=== PATIENT | female | born 1955 | race Caucasian/White ===

== ENCOUNTER → 2018-07-27 | Outpatient (REF) | payer OTHER ==
[2018-07-27 18:37] LABS: FERRITIN 36 NG/ML (8-252); IRON (FE) 43 UG/DL (50-170); PERCENT SATURATION 13.6 % (13.2-45.0); TOTAL IRON BINDING CAPACITY 316 UG/DL (250-450)
== END ==
LOC: M LAB REF 17:13
DX: N18.3 Chronic kidney disease, stage 3 (moderate) (principal); D63.1 Anemia in chronic kidney disease
CPT/HCPCS: 83550

== ENCOUNTER → 2018-07-27 | Outpatient (REF) | payer OTHER | LOC: M LAB REF 13:18 | DX: N39.0 Urinary tract infection, site not specified (principal) ==

== ENCOUNTER → 2018-08-09 | Outpatient (CLI) | payer OTHER | LOC: M RAD 13:36 | DX: N27.0 Small kidney, unilateral (principal); N18.3 Chronic kidney disease, stage 3 (moderate) | CPT/HCPCS: 78707 ==

== ENCOUNTER → 2018-08-12 | Outpatient (REF) | payer OTHER ==
[2018-08-12 18:24] LABS: AMORPHOUS SEDIMENT SMALL (NEGATIVE); BACTERIA, URINE AUTO 1+ (NEGATIVE); RBC, URINE AUTO 15 /HPF (0-3); SQUAMOUS EPITHELIAL CELL UR AU 1 /HPF (0-6); WBC, URINE AUTO TNTC /HPF (0-3); YEAST LIKE CELL URINE AUTO MODERATE
== END ==
LOC: M LAB REF 16:48
DX: N18.3 Chronic kidney disease, stage 3 (moderate) (principal); N39.0 Urinary tract infection, site not specified
CPT/HCPCS: 81015

== ENCOUNTER → 2018-10-14 | Outpatient (REF) | payer OTHER | LOC: M LAB REF 10:13 | PROVIDERS: ATTEND Internal Medicine Nephrology | DX: N39.0 Urinary tract infection, site not specified (principal); N18.3 Chronic kidney disease, stage 3 (moderate) ==

== ENCOUNTER → 2019-04-20 | Outpatient (REF) | payer OTHER | LOC: M LAB REF 13:18 | PROVIDERS: ATTEND Nurse Practitioner Family | DX: Z87.440 Personal history of urinary (tract) infections (principal) ==

== ENCOUNTER → 2019-05-09 | Outpatient (CLI) | payer MEDICARE, OTHER ==
--- NOTE | 2019-05-10 08:44 | REP ---
REASON: History of renal calculi. PRIORS: None. The lung bases are clear. Limited evaluation of the solid intra-abdominal organs and gallbladder show no gross abnormalities. There is a moderate-sized hiatal hernia. There are no right-sided nephroliths. Limited evaluation of the pancreas and adrenal glands show no gross abnormalities. There is a staghorn calculus on the left. The left renal cortex is thin. Small ground-like calculi might be present in the left renal pelvis and proximal left ureter as minimal radiodensities are suspected in a slightly dilated left renal pelvis and proximal left ureter. The distal portion of the left ureter is normal. The right renal collecting system is normal. There are no urinary bladder calcifications. There is no free fluid or free air in the abdomen or pelvis. There are multiple nonenlarged left periaortic lymph nodes. The abdominal aorta is seen with calcific atherosclerotic change but is otherwise unremarkable. The intra-abdominal and intrapelvic bowel loops are within normal limits. There has been previous left upper quadrant bowel surgery from previous gastric bypass. There is a small fat-containing umbilical hernia. There is no free fluid or free air in the abdomen or pelvis. Bone window technique throughout the exam shows chronic osseous changes. IMPRESSION: 1. Staghorn calculus on the left with other findings involving the left renal pelvis and proximal left ureter as described above. Clinical correlation and followup is suggested if clinically relevant. 2. Small fat-containing umbilical hernia. 3. Moderate-sized hiatal hernia. 4. Other findings as described above. Electronically Signed by Nacho Hernandez DO 05/10/2019 09:47 A
== END ==
LOC: M RAD 14:53
PROVIDERS: ATTEND Nurse Practitioner Family
DX: N20.0 Calculus of kidney (principal); Z87.442 Personal history of urinary calculi

== ENCOUNTER → 2019-10-27 | Outpatient (REF) | payer MEDICARE, OTHER | LOC: M LAB REF 17:14 | PROVIDERS: ATTEND Nurse Practitioner Family | DX: N39.0 Urinary tract infection, site not specified (principal) ==

== ENCOUNTER → 2019-11-07 | Outpatient (CLI) | payer MEDICARE, OTHER ==
--- NOTE | 2019-11-07 11:57 | REP ---
Clinical: Chronic stage III renal disease. Technique: Real time johnston scale ultrasound examination using curved array transducer. Findings: The kidneys demonstrate increased central sinus fat and decreased cortical thinning without hydronephrosis. Right kidney measures 9.8 x 4.2 x 4.4 cm without evidence for nephrolithiasis or mass lesion. Left kidney measures 11.3 x 4.8 x 5.4 cm with suggestions for nonobstructing intrarenal calculi. Bladder is collapsed. Impression: 1. Evidence for chronic medical renal disease with mild asymmetric atrophy to the right kidney. 2. Suspected left renal calculi which were previously identified on CT dated 05/09/2019 as staghorn calculus. Electronically Signed by Eros Harris MD 11/07/2019 11:49 A
== END ==
LOC: M RAD 11:09
PROVIDERS: ATTEND Nurse Practitioner Family
DX: N18.3 Chronic kidney disease, stage 3 (moderate) (principal); N26.1 Atrophy of kidney (terminal)

== ENCOUNTER → 2019-12-04 | Outpatient (CLI) | payer MEDICARE, OTHER ==
[~2019-12-04] MED LIST: CIPROFLOXACIN/D5W 400 MG/200 ML BAG (J0744) As Ordered ONE; DOCU100C16 PO; ISOVUE-300 61% 50ML VIAL (Q9967) As Ordered ONE; LIDOCAINE 1% MDV 20ML VIAL As Ordered ONE; MAGN1CAP PO; METO1TAB32 PO; MIDAZOLAM INJ 2 MG/2 ML VIAL (J2250) As Ordered ONE; PERCOCET PO; SPIR1TAB34 PO; SULF1TAB93 PO; VENL75TA2 PO; VITAD1000T PO; diphenhydrAMINE INJ 50MG/ML VIAL (J1200) As Ordered ONE; fentaNYL 100 MCG/2 ML INJECTION (J3010) As Ordered ONE; tylenol pm PO
--- NOTE | 2019-12-04 12:16 | IRHP ---
[facility] IR Pre-Procedure H & P General Date of Service: Dec 04, 2019 Procedure: Same Day Surgery Interval History and Physical I have seen the patient and reviewed last H & P performed within 30 days. There is no significant interval change. History of Present Illness Chief Complaint The patient is a 64-year-old female admitted with a reason for visit of Kidney Stone. PRE-PROCEDURE DIAGNOSIS: kidney stone HEART: normal rate. LUNGS: normal breathing at rest. ASA Classification ASA Classification: II-Mild systemic disease Mallampati Score: II NPO: Yes Problems with prior sedation: No Obstructive Sleep Apnea: No Plan moderate sedation Allergies Coded Allergies: Penicillins (Verified Allergy, Intermediate, hives, 11/22/19) ENVIROMENTAL (Verified Allergy, Unknown, 11/22/19) Home Medications Scheduled Cholecalciferol (Vitamin D3) (Vitamin D3), 2,000 UNITS PO DAILY, (Reported) Magnesium Oxide (Magnesium), 500 MG PO DAILY, (Reported) Metoprolol Succinate (Metoprolol Succinate), 25 MG PO QPM, (Reported) Spironolact/Hydrochlorothiazid (Spironolactone-Hctz 25-25 Tab), 1 EA PO DAILY, (Reported) Venlafaxine HCl (Venlafaxine HCl), 75 MG PO BID, (Reported) [tylenol pm], PO QPM, (Reported) VS, I&O, 24H, Fishbone Vital Signs/I&O Vital Signs Date Time Temp Pulse Resp B/P (MAP) Pulse Ox O2 Delivery O2 Flow Rate FiO2 12/04/19 11:37 97.2 66 18 100 Room Air SOFÍA ADAM MD Dec 04, 2019 12:16
[2019-12-04 15:20] VITALS: BP 120/62
--- NOTE | 2019-12-04 15:47 | POST-OPPD ---
Postoperative Procedure Note Date Of Procedure: Dec 04, 2019 Time Of Procedure: 15:46 PREOPERATIVE DIAGNOSIS: left kidney stone POSTOPERATIVE DIAGNOSIS: same FINDINGS: same. duplicated collecting system. PROCEDURE: left PCNL access. NU placed SURGEON: britni ANESTHESIA: mod sed ESTIMATED BLOOD LOSS: < 5 ml COMPLICATIONS: none POSTOPERATIVE CONDITION: stable SOFÍA ADAM MD Dec 04, 2019 15:47
--- NOTE | 2019-12-05 08:31 | REP ---
IR Percutaneous nephro ureteral catheter placement using fluoroscopy guidance. IR PCNL access IR Nephrostogram and Ureterogram. IR moderate sedation. Clinical information: Left renal staghorn calculus. Needs PCNL access. Physician: Dr Cordova. Procedure: The patient was advised of the benefits, risks and alternatives of the procedure and informed consent was obtained. The time-out was performed with verification of the patient's name, MRN, site of procedure and type of procedure to be performed. The patient was positioned in the prone position on the angiographic table. The site was prepped and draped in the usual sterile fashion. Moderate sedation was performed by the physician including the presence of an independent trained observer who assisted in monitoring the patient's level of consciousness and physiologic status. Following the administration of Fentanyl and Versed, the physician spent 60 minutes of face to face time with the patient. A sterilization tech radiograph reveals large radio opaque density over left kidney. The anticipated puncture site on the flank was anesthetized with lidocaine. Using fluoroscopic guidance, a lower pole calyx was accessed with a 21 gauge Chiba needle. A nephrostogram and ureterogram was performed demonstrating staghorn calculus in the left lower pole moiety. Duplicated collecting system with reflux into the upper pole moiety. Hydroureter of the lower ureter. 2 ureters join in the distal third of the ureter. An 018 wire was then advanced into the collecting system. The needle was then exchanged for a non vascular introducer set. A glide wire in conjunction with a glide cath was used to recanalize the klamath ureter down to the bladder using fluoro guidance. Contrast injection confirms location in the collecting system and bladder. The glidewire was exchanged for an Amplatz wire which was advanced under fluoroscopy guidance through the catheter into the bladder. The sheath and catheter were removed. A 6 Syriac nephro ureteral catheter was then advanced over the wire into the bladder. The distal pigtail was formed. A final nephrostogram ureterogram was performed confirming position of the pigtail in the bladder. No extravasation. The catheter was sutured in position with 2-0 Prolene and a sterile dressing was applied. The patient tolerated the procedure well and was returned to the PRU in stable condition. EBL: < 5 ml. Complications: None. Conclusion: 1. 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 Staghorn calculus in the lower pole moiety. 2. Successful left sided temporary nephro ureteral catheter placement. Patient to follow up with urology on Wednesday for stone removal. Thank you for this referral. Electronically Signed by Ava Cordova MD 12/05/2019 08:30 A
== END ==
LOC: M IRPRO 11:16
PROVIDERS: ATTEND Radiology Diagnostic Radiology
DX: N20.0 Calculus of kidney (principal)
CPT/HCPCS: 50433; 99152; 99153; C1769; C1887; C1894; J0744; J1200; J2250; J3010; Q9967

== ENCOUNTER 2019-12-06 07:07 | Inpatient (IN) | payer MEDICARE, OTHER ==
[2019-12-06] VITALS (12 sets, daily range): BP systolic 127–135; BP diastolic 60–63
[~2019-12-06] VITALS: Ht 170.2 cm; Wt 109.3 kg
[~2019-12-06 07:07] MED LIST changes: +ACETAMINOPHEN 1000MG 100ML IV BTL (OFIRMEV) (J0131 PER 10MG) As Ordered ONE; -CIPROFLOXACIN/D5W 400 MG/200 ML BAG (J0744) As Ordered ONE; -DOCU100C16 PO; -ISOVUE-300 61% 50ML VIAL (Q9967) As Ordered ONE; +KETOROLAC 60 MG/2 ML VIAL (J1885) As Ordered ONE; -LIDOCAINE 1% MDV 20ML VIAL As Ordered ONE; +LIDOCAINE 2% INJ 100 MG/5 ML SDV (FOR ANES.) As Ordered ONE; +LR 1,000 ML IV ONE; +LevoFLOXacin IV 500 MG in IV 1 EA IV ONE; +ONDANSETRON 4MG/2ML VIAL (J2405) As Ordered ONE; -PERCOCET PO; +ROCURONIUM BROMIDE 50 MG/5 ML VIAL As Ordered ONE; +SUGAMMADEX SODIUM 500 MG/5 ML VIAL (BRIDION) As Ordered ONE; -SULF1TAB93 PO; +dexameTHASONE 4 MG/ML 1ML VIAL (J1100) As Ordered ONE; -diphenhydrAMINE INJ 50MG/ML VIAL (J1200) As Ordered ONE; +propofoL 200 MG/20 ML VIAL As Ordered ONE
[2019-12-06] MEDS ORDERED: SULF1TAB93 PO (07:46)
[2019-12-06] MEDS ORDERED: CONRAY-60 60% 50ML VIAL (Q9961) As Ordered ONE (08:20)
[2019-12-06] MEDS ORDERED: PERCOCET 5MG/325MG TAB PO PRN ×2 (08:45)
[2019-12-06] MEDS ORDERED: ONDANSETRON 4MG/2ML VIAL (J2405) IV PRN ×2 (08:45→11:30)
[2019-12-06] MEDS ORDERED: MORPHINE 2 MG/ML 1ML VIAL (J2270) IV PRN (08:45)
[2019-12-06] MEDS ORDERED: fentaNYL 100 MCG/2 ML INJECTION (J3010) As Ordered ONE (09:39)
[2019-12-06] MEDS ORDERED: ROCURONIUM BROMIDE 50 MG/5 ML VIAL As Ordered ONE (09:39)
[2019-12-06] MEDS ORDERED: LR 1,000 ML IV SCH (11:30)
[2019-12-06] MEDS ORDERED: METOCLOPRAMIDE INJ 10MG/2ML VIAL (J2765) IV PRN (11:30)
[2019-12-06] MEDS ORDERED: HYDROMORPHONE HCL 0.5 MG/ 0.5 ML SYRINGE (J1170 PER 1) IV PRN (11:30)
[2019-12-06] MEDS ORDERED: oxyCODONE 5MG TAB PO PRN (11:30)
[2019-12-06] MEDS ORDERED: fentaNYL 100 MCG/2 ML INJECTION (J3010) IV PRN (11:30)
[2019-12-06 12:07] LABS: HEMATOCRIT 35.2 % (36.0-47.0); HEMOGLOBIN 12.1 g/dl (12.0-15.5); MEAN CORPUSCULAR HGB CONC 34.4 g/dl (32.0-36.5); MEAN CORPUSCULAR VOLUME 81.5 fl (80.0-96.0); PLATELET COUNT, AUTOMATED 205 10^3/uL (150-450); RED BLOOD COUNT 4.32 10^6/uL (4.00-5.40); WHITE BLOOD COUNT 11.7 10^3/uL (4.0-10.0)
[2019-12-06 12:23] LABS: CALCIUM LEVEL 8.4 MG/DL (8.8-10.2); CREATININE FOR GFR 2.53 MG/DL (0.55-1.30); GLOMERULAR FILTRATION RATE 20.3 (>45); POTASSIUM SERUM 5.1 MEQ/L (3.5-5.1)
--- NOTE | 2019-12-06 13:29 | ROOPDOC ---
[facility] Report Of Operation Report of Operation DATE OF PROCEDURE: 12/06/19 PREPROCEDURE DIAGNOSIS: Left kidney stones. POSTPROCEDURE DIAGNOSIS: Left kidney stones. PROCEDURE: Left percutaneous nephrolithotomy, left flexible nephroscopy with basket extraction of stones, left antegrade nephrostogram with intraoperative interpretation of images, left ureteral stent placement. SURGEON: Dr. Froilan Murphy SOUND ART INSTRUCTOR: None ANESTHESIA: General. OPERATIVE INDICATIONS: This is a 64-year-old female who was recently found to left sided kidney stones measuring up to 4cm in size. It was recommended she be brought to the operating room for the above-listed procedure. DESCRIPTION OF PROCEDURE: The patient brought to the operating room, and general anesthesia was induced. Prophylactic antibiotics were infused. A Alejandra catheter was then placed under sterile conditions. The patient was then repositioned in the prone position in preparation for a left-sided percutaneous nephrolithotomy. The patient was then prepped and draped in the usual sterile fashion. At this point, the previously-placed left nephroureteral catheter was utilized to advance a Sensor guidewire down the left collecting system and into the bladder. The nephroureteral catheter was then removed, leaving the wire in place. Next, a 3 cm transverse incision was made adjacent to the wire. A dual-lumen ureteral catheter was then advanced down into the left renal pelvis. An Amplatz Super Stiff wire was then advanced down the left collecting system and into the bladder. The dual-lumen ureteral catheter was then removed, leaving both wires in place. The Super Stiff wire was then secured to the drape to serve as a safety wire. Next, over the Sensor wire, a balloon dilator was advanced into the left renal pelvis. The balloon was then inflated and left in place for a few seconds. Next, an access sheath was advanced over the balloon into the left renal pelvis. The balloon was then let down and removed, leaving the access sheath and the wire in place. At this point, a nephroscope was introduced into the left renal pelvis. We were able to identify the large left kidney stone. The stone was then fragmented into several pieces and suctioned out using a CyberWand. I then examined the left kidney with a flexible cystoscope and only very small stone fragments remained in side the kidney. I went down the ureter with the cystoscope and a small stone was seen and removed with a basket. The cystoscope was taken out, and a #7-Sami x 22-32 cm double J ureteral stent was advanced down into the left collecting system over the wire. The Sensor wire was then removed, and there were adequate curls of the stent in the left renal pelvis and in the bladder. At this point, the access sheath was removed, and the Super Stiff wire was utilized to advance a #18-Sami [place] tip catheter down into the left collecting system. After the tip was within the renal pelvis, the balloon was inflated with about 3 mL of contrast. The [place] tip catheter was also utilized to shoot an antegrade nephrostogram, and this was negative for extravasation. We then secured the [place] tip catheter to the skin with a #2-0 silk suture. This was then connected to gravity drainage and marked the c onclusion of the procedure. The patient was placed back in supine position, awakened from anesthesia, and transported to the recovery room in stable condition. ESTIMATED BLOOD LOSS: approximately 50 mL COMPLICATIONS: None. SPECIMENS: Left kidney stone fragments. PLAN: The patient will be admitted to the hospital postoperatively. I will likely remove her left nephrostomy catheter tomorrow, and if her labs are stable and urine output is clear, I will also remove the Alejandra catheter. She will be discharged home with the stent in place with the plan to remove that in a few weeks in the office. FROILAN MURPHY MD Dec 06, 2019 12:02
[2019-12-06] MEDS: NS 1,000 ML IV SCH ×2 (15:57→20:56)
[2019-12-06] MEDS: ACETAMINOPHEN TAB 650MG DOSE (2X325MG) PO PRN (15:57)
[2019-12-06] MEDS: DOCUSATE SODIUM 100 MG CAP PO SCH ×2 (15:57→22:18)
[2019-12-06] MEDS: hydroCHLOROthiazide 25 MG TAB PO SCH (15:58)
[2019-12-06] MEDS: SPIRONOLACTONE 25 MG TAB PO SCH (16:03)
[2019-12-06] MEDS: VENLAFAXINE 37.5 MG TAB PO SCH ×2 (16:03→22:19)
[2019-12-06] MEDS ORDERED: METOPROLOL SUCC *XL* 25MG TAB (TopROL *XL*) PO SCH (21:00)
[2019-12-07 02:00] VITALS: BP 126/62
[2019-12-07] MEDS: NS 1,000 ML IV SCH (04:45)
[2019-12-07 06:00] VITALS: BP 113/49
[2019-12-07 06:30] LABS: HEMATOCRIT 29.7 % (36.0-47.0); HEMOGLOBIN 10.2 g/dl (12.0-15.5); MEAN CORPUSCULAR HEMOGLOBIN 27.9 pg (27.0-33.0); MEAN CORPUSCULAR HGB CONC 34.3 g/dl (32.0-36.5); MEAN CORPUSCULAR VOLUME 81.1 fl (80.0-96.0); PLATELET COUNT, AUTOMATED 191 10^3/uL (150-450); RED BLOOD COUNT 3.66 10^6/uL (4.00-5.40)
[2019-12-07] MEDS: ACETAMINOPHEN TAB 650MG DOSE (2X325MG) PO PRN (06:49)
[2019-12-07 07:14] LABS: CALCIUM LEVEL 7.8 MG/DL (8.8-10.2); CREATININE FOR GFR 2.01 MG/DL (0.55-1.30); GLOMERULAR FILTRATION RATE 26.5 (>45); POTASSIUM SERUM 4.8 MEQ/L (3.5-5.1)
--- NOTE | 2019-12-07 07:21 | REP ---
Pyelogram: Seven views. History: Left percutaneous nephrostomy. 46 seconds of fluoroscopy time is reported. Findings: A sequence of seven last image hold fluoroscopically obtained spot radiographs of the left abdomen document percutaneous catheter and guidewire access to the left kidney, contrast injection, and stent placement. Electronically Signed by Tye Mtz MD 12/06/2019 11:45 A
--- NOTE | 2019-12-07 08:09 | IPNPDOC ---
Subjective Review oF Systems Chief Complaint The patient is a 64-year-old female admitted with a reason for visit of Nephrolithiasis. Events since Last Encounter No acute events o/n. Good pain control. No n/v. No f/c/ns. Objective Physical Examination General Exam: Alert, Cooperative, No Acute Distress ABDOMEN EXAM: Soft Skin Exam: Nl turgor and temperature Neuro Exam: Normal Speech Psych Exam: Mental status NL, Mood NL Other physical findings L neph catheter draining pink urine; bladder catheter w/ minimal output Vital Signs/I&O Vital Signs Date Time Temp Pulse Resp B/P (MAP) Pulse Ox O2 Delivery O2 Flow Rate FiO2 12/07/19 06:00 99.1 66 18 113/49 (70) 94 Room Air 12/06/19 11:35 2 I&O- Last 24 Hours up to 6 AM 12/07/19 06:00 Intake Total 3220 ml Output Total 3650 ml Balance -430 ml Laboratory Data Labs 24H Laboratory Tests 2 12/06/19 11:28: Nucleated Red Blood Cells % (auto) 0.0, Anion Gap 7L, Glomerular Filtration Rate 20.3L, Calcium Level 8.4L 12/07/19 06:17: Nucleated Red Blood Cells % (auto) 0.0, Anion Gap 6L, Glomerular Filtration Rate 26.5L, Calcium Level 7.8L CBC/BMP Laboratory Tests 12/06/19 11:28 12/07/19 06:17 Assessment/Plan Date Seen The patient was seen on 12/07/19. Patient Summary This is a 64 y/o F POD1 s/p L PCNL. Hb 10.2. Cr trending down, now 2 this morning. Good UOP. Plan/VTE VTE Prophylaxis Ordered?: Yes VTE Exclusion Mechanical Proph: N/A:VTE Prophy Ordered Plan/Urinary Catheter Urinary Catheter: D/C Alejandra Plan - L neph catheter removed - d/c Alejandra catheter in 1 hr if no increase in hematuria - percocet prn pain - strict I/Os - SCDs when in bed - ambulate - incentive spirometry - regular diet - discharge home today after patient voids FROILAN MURPHY MD Dec 07, 2019 08:09
[2019-12-07] MEDS ORDERED: LevoFLOXacin IV 500 MG in IV 1 EA IV SCH (09:00)
[2019-12-07] MEDS: DOCUSATE SODIUM 100 MG CAP PO SCH (09:19)
[2019-12-07] MEDS: SPIRONOLACTONE 25 MG TAB PO SCH (09:19)
[2019-12-07] MEDS: VENLAFAXINE 37.5 MG TAB PO SCH (09:19)
[2019-12-07] MEDS: hydroCHLOROthiazide 25 MG TAB PO SCH (09:19)
[2019-12-07 10:00] VITALS: BP 120/62
[2019-12-07] MEDS ORDERED: DOCU100C16 PO (11:17)
[2019-12-07] MEDS ORDERED: PERCOCET PO (11:17)
== END 2019-12-07 14:40 | disposition home or self-care (01) | DRG 661 ==
LOC: M SDC 07:07 → M MSPAV 08:52 → M SDC 12:42 → M MSPAV 12-07 14:40
PROVIDERS: ADMIT Urology; ATTEND Urology
PROC: 0TCB8ZZ Extirpation of Matter from Bladder, Via Natural or Artificial Opening Endoscopic (ICD-10-PCS; 2019-12-06)
PROC: 0T744DZ Dilation of Left Kidney Pelvis with Intraluminal Device, Percutaneous Endoscopic Approach (ICD-10-PCS; principal; 2019-12-06 08:30)
DX: N20.0 Calculus of kidney (principal); I10 Essential (primary) hypertension; E11.9 Type 2 diabetes mellitus without complications; E66.9 Obesity, unspecified; Z68.36 Body mass index [BMI] 36.0-36.9, adult

== ENCOUNTER → 2020-10-11 | Outpatient (REF) | payer MEDICARE, OTHER ==
[~2020-10-11] MED LIST changes: -ACETAMINOPHEN 1000MG 100ML IV BTL (OFIRMEV) (J0131 PER 10MG) As Ordered ONE; +D31000TA2 PO; +DOCU100C16 PO; -KETOROLAC 60 MG/2 ML VIAL (J1885) As Ordered ONE; -LIDOCAINE 2% INJ 100 MG/5 ML SDV (FOR ANES.) As Ordered ONE; -LR 1,000 ML IV ONE; -LevoFLOXacin IV 500 MG in IV 1 EA IV ONE; -MIDAZOLAM INJ 2 MG/2 ML VIAL (J2250) As Ordered ONE; -ONDANSETRON 4MG/2ML VIAL (J2405) As Ordered ONE; +PERCOCET PO; -ROCURONIUM BROMIDE 50 MG/5 ML VIAL As Ordered ONE; -SUGAMMADEX SODIUM 500 MG/5 ML VIAL (BRIDION) As Ordered ONE; +SULF1TAB93 PO; -VITAD1000T PO; -dexameTHASONE 4 MG/ML 1ML VIAL (J1100) As Ordered ONE; -fentaNYL 100 MCG/2 ML INJECTION (J3010) As Ordered ONE; -propofoL 200 MG/20 ML VIAL As Ordered ONE
== END ==
LOC: M LAB REF 16:43
PROVIDERS: ATTEND Nurse Practitioner Family
DX: N39.0 Urinary tract infection, site not specified (principal)

== ENCOUNTER → 2021-05-14 | Outpatient (REF) | payer MEDICARE, OTHER ==
[~2021-05-14] MED LIST changes: +BACTDSTA PO; -SULF1TAB93 PO
[2021-05-14 14:52] LABS: BACTERIA, URINE AUTO 1+ (NEGATIVE); MUCUS, URINE SMALL (NEGATIVE); RBC, URINE AUTO 2 /HPF (0-3); SQUAMOUS EPITHELIAL CELL UR AU 2 /HPF (0-6); WBC, URINE AUTO 30 /HPF (0-3)
== END ==
LOC: M LAB REF 13:09
PROVIDERS: ATTEND Nurse Practitioner Family
DX: R31.9 Hematuria, unspecified (principal)

== ENCOUNTER → 2024-08-08 | Outpatient (REF) | payer MEDICARE, OTHER ==
[~2024-08-08] MED LIST changes: -D31000TA2 PO; +VITA100093 PO
== END ==
LOC: M LAB REF 17:18
PROVIDERS: ATTEND Nurse Practitioner Family
DX: N39.0 Urinary tract infection, site not specified (principal)